=== PATIENT | female | born 1950 | race Two or more races ===

== ENCOUNTER → 2016-07-15 | Outpatient (CLI) | payer MEDICARE ==
--- NOTE | 2016-07-15 09:30 | RAD ---
Bilateral carotid arterial duplex study 07/15/2016 Clinical History: Left carotid bruit. Technique: Using a combination of real-time ultrasound imaging and color-flow and pulse Doppler imaging techniques, duplex evaluation of the carotid and vertebral arterial structures within the neck was performed. Multiple images were obtained. Findings: Very mild atheromatous/atherosclerotic plaque formation is seen involving both carotid bifurcations. The peak systolic velocities are not significantly elevated. No hemodynamically significant stenosis is seen. The vertebral arteries demonstrate normal antegrade flow. Impression: Very mild atheromatous/atherosclerotic plaque formation is seen involving both carotid bifurcations. No hemodynamically significant stenosis is seen. Please note that stenosis calculations for carotid ultrasound studies are derived from validated velocity criteria which are known to correlate with the NASCET methodology.
== END | disposition home or self-care (01) ==
LOC: US 07:20
PROVIDERS: ATTEND Family Medicine
DX: I65.23 Occlusion and stenosis of bilateral carotid arteries (principal)
CPT/HCPCS: 93880

== ENCOUNTER → 2016-07-19 | Outpatient (CLI) | payer MEDICARE ==
--- NOTE | 2016-07-19 09:45 | RAD ---
Indication +PPD. PA and lateral views of the chest were obtained. No prior imaging of the chest is available. There are some changes at the lung apices likely reflecting scarring. There is some interstitial prominence in the lungs likely reflecting chronic changes of fibrosis. There is no consolidated pneumonia. Active inflammation is not seen. Evidence of significant previous granulomatous disease is not seen. Heart and pulmonary vessels are within normal limits. Breast implants are noted. IMPRESSION: Chronic changes. No acute or active process is seen in the chest
== END | disposition home or self-care (01) ==
LOC: RAD 09:10
PROVIDERS: ATTEND Family Medicine
DX: R76.11 Nonspecific reaction to tuberculin skin test without active tuberculosis (principal)
CPT/HCPCS: 71020

== ENCOUNTER → 2016-11-05 | Day surgery (SDC) | payer MEDICARE ==
[~2016-11-05] MED LIST: CHOL400C2 PO; FERR160T4 PO; HYDROmorphone 2 MG/ML VIAL IV PRN; IV RINGERS,LACTATED 1000ML 1,000 ML IV SCH; LIDOCAINE 1% 1 ML SYRINGE. ID PRN; LIDOCAINE 2% PF Vial for OR 5 ML VIAL. ONE; MORPHINE SULFATE 2 MG/ML DISP.SYRIN. IV PRN; MULT-208 PO; ONDANSETRON PF 4 MG/2 ML VIAL. IV PRN; PROCHLORPERAZINE 10 MG/2 ML VIAL. IV PRN; PROPOFOL 20 ML IV ONE; PSYL0.527 PO; SIMV10TA3 PO; fentaNYL PF VIAL 100 MCG/2 ML VIAL IV PRN
[2016-11-05 08:42] VITALS: BP 104/54
--- NOTE | 2016-11-05 08:42 | HP ---
ADMIT DATE: 11/05/2016 REFERRING PHYSICIAN: Dr. Eloina Saucedo HISTORY OF PRESENT ILLNESS: This is a 66-year-old female whose past medical history is significant for hyperlipidemia, seen for a screening colon exam. Bowel habits have been regular with a normal bowel pattern of 1 per day with formed stools. There has been no melena and/or hematochezia. Weight and appetite have been stable. Family history is negative for colon cancer. Last colonoscopy was over a decade ago, which was unrevealing at that time. PAST MEDICAL HISTORY: Hyperlipidemia. ALLERGIES: ASPIRIN. MEDICATIONS: Include vitamin D, ferrous sulfate, multivitamin, simvastatin. SOCIAL HISTORY: She does not drink or smoke. FAMILY HISTORY: Noncontributory. PAST SURGICAL HISTORY: Noncontributory. REVIEW OF SYSTEMS: History of hyperlipidemia. PHYSICAL EXAMINATION: VITAL SIGNS: Temperature is 97.5, pulse 75, respiratory rate 18. HEENT: Normocephalic and atraumatic head. Pupils and extraocular muscles not tested. Sclerae anicteric. NECK: Supple. LUNGS: Clear to auscultation and percussion previously. CARDIOVASCULAR: S1, S2 without S3, S4 or appreciable murmur. ABDOMEN: Normoactive bowel sounds ____ appreciable hepatosplenomegaly. IMPRESSION: Colorectal screening is warranted at this time. Risks and benefits of the procedure including risk of perforation ____ operation have been discussed with the patient who is willing to proceed. ROSA MARIA LIN MD DR: PRAVEENA/ronaldo JOB#: [id number] / [id number]
== END | disposition home or self-care (01) ==
LOC: ENDOS 06:48
PROVIDERS: ATTEND Internal Medicine Gastroenterology
DX: Z12.11 Encounter for screening for malignant neoplasm of colon (principal); K64.0 First degree hemorrhoids; K57.30 Diverticulosis of large intestine without perforation or abscess without bleeding
CPT/HCPCS: G0121; J2001; J2704

== ENCOUNTER → 2017-01-17 | Outpatient (CLI) | payer MEDICARE ==
[2016-11-05 08:42] VITALS: BP 104/54
[~2017-01-17] MED LIST changes: -HYDROmorphone 2 MG/ML VIAL IV PRN; -IV RINGERS,LACTATED 1000ML 1,000 ML IV SCH; -LIDOCAINE 1% 1 ML SYRINGE. ID PRN; -LIDOCAINE 2% PF Vial for OR 5 ML VIAL. ONE; -MORPHINE SULFATE 2 MG/ML DISP.SYRIN. IV PRN; -ONDANSETRON PF 4 MG/2 ML VIAL. IV PRN; -PROCHLORPERAZINE 10 MG/2 ML VIAL. IV PRN; -PROPOFOL 20 ML IV ONE; -fentaNYL PF VIAL 100 MCG/2 ML VIAL IV PRN
--- NOTE | 2017-01-17 10:22 | RAD ---
DATE: January 17, 2017 EXAM: DIGITAL SCREEN BILAT W/CAD HISTORY: Routine screening. COMPARISON: Studies back to December 24, 2013. TECHNIQUE: CC and MLO views along with implant displaced views are provided. This study was interpreted with the benefit of Computerized Aided Detection (CAD). FINDINGS: The breast parenchyma demonstrates scattered fibroglandular densities, category B. There is no worrisome mass or area of architectural distortion. There are no suspicious groupings of microcalcifications implants are noted. IMPRESSION: Stable mammogram with benign findings. BI-RADS CATEGORY: 2 BENIGN FINDING RECOMMENDED FOLLOW-UP: 12M 12 MONTH FOLLOW-UP PQRS compliance statement: Patient information was entered into a reminder system with a target due date for the next mammogram. Mammography is a sensitive method for finding small breast cancers, but it does not detect them all and is not a substitute for careful clinical examination. A negative mammogram does not negate a clinically suspicious finding and should not result in delay in biopsying a clinically suspicious abnormality. "Our facility is accredited by the [employer] Mammography Program."
== END | disposition home or self-care (01) ==
LOC: MAMMO 09:13
PROVIDERS: ATTEND Family Medicine
DX: Z12.31 Encounter for screening mammogram for malignant neoplasm of breast (principal)
CPT/HCPCS: G0202; 77067

== ENCOUNTER 2017-04-25 13:25 | Emergency (ER) | payer MEDICARE ==
[2017-04-25 15:34] LABS: ADD MAN DIFF? NO
[2017-04-25] MEDS: IV NORMAL SALINE 1000ML BAG 1,000 ML IV (15:34)
[2017-04-25 15:35] LABS: BILIRUBIN,URINE NEGATIVE (NEG); CLARITY,URINE CLEAR; COLOR,URINE YELLOW; GLUCOSE,URINE NEGATIVE (NEG); NITRITE,URINE NEGATIVE (NEG); PH,URINE 7.5; PROTEIN,URINE NEGATIVE (NEG-TRACE); UROBILINOGEN,URINE 0.2 mg/dL (0.2 mg/dL)
[2017-04-25] MEDS: ONDANSETRON PF 4 MG/2 ML VIAL. IV (15:35)
[2017-04-25 15:37] LABS: BASO % 1 % (0-3); EOS # 0.1 x10^3/uL (0.0-0.7); EOS % 2 % (0-3); HEMATOCRIT 39.4 % (36.0-47.0); HEMOGLOBIN 13.1 g/dL (12.0-15.5); LYMPH # 1.3 x10^3/uL (1.0-4.8); LYMPH % 25 % (24-48); MEAN CORPUSCULAR HEMOGLOBIN 30 pg (25-35); MEAN CORPUSCULAR HGB CONC 33 g/dL (31-37); MEAN CORPUSCULAR VOLUME 90 fL (79-100); MONO # 0.4 x10^3/uL (0.0-1.1); MONO % 7 % (0-9); NEUT # 3.2 x10^3uL (1.8-7.7); NEUT % 65 % (31-73); PLATELET COUNT 199 x10^3/uL (140-400); RED BLOOD COUNT 4.36 x10^6/uL (3.50-5.40); RED CELL DISTRIBUTION WIDTH 12.9 % (11.5-14.5)
[2017-04-25 15:40] LABS: BACTERIA,URINE 0 /HPF (0-FEW); RBC,URINE OCC /HPF (0-2); SQUAMOUS EPITHELIAL CELL,UR OCC /LPF; WBC,URINE 0 /HPF (0-4)
[2017-04-25 15:46] LABS: ANION GAP 12 (6-14); BLOOD UREA NITROGEN 13 mg/dL (7-20); BUN/CREATININE RATIO 19 (6-20); CALCIUM 8.2 mg/dL (8.5-10.1); CARBON DIOXIDE 27 mmol/L (21-32); CHLORIDE 103 mmol/L (98-107); CREATININE 0.7 mg/dL (0.6-1.0); GFR 83.7; GLUCOSE 97 mg/dL (70-99); POTASSIUM 3.8 mmol/L (3.5-5.1); SODIUM 142 mmol/L (136-145)
[2017-04-25 15:52] LABS: ALBUMIN 3.4 g/dL (3.4-5.0); ALK PHOS 44 U/L (46-116); ALT (SGPT) 19 U/L (14-59); AST (SGOT) 21 U/L (15-37); LIPASE 137 U/L (73-393); TOTAL BILIRUBIN 0.4 mg/dL (0.2-1.0); TOTAL PROTEIN 6.7 g/dL (6.4-8.2)
[2017-04-25] MEDS: LIDO:MAALOX:DONNATAL 1:1:1 15 ML SINGLE DOSE SWSW (16:07)
== END 2017-04-25 17:45 | disposition home or self-care (01) ==
LOC: ER 13:25
DX: R11.2 Nausea with vomiting, unspecified (principal); R10.13 Epigastric pain; R19.7 Diarrhea, unspecified; Z88.6 Allergy status to analgesic agent
CPT/HCPCS: 36415; 80053; 81001; 83690; 85025; 93005; 96361; 96374; 99285-25; J2405; J7030

== ENCOUNTER → 2018-01-27 | Outpatient (CLI) | payer BC ==
[2017-04-25 17:26] VITALS: BP 112/56
[~2018-01-27] MED LIST changes: +FAMO-63 PO; +ONDA4TAB10 SL
--- NOTE | 2018-01-27 13:53 | RAD ---
DATE: 01/27/2018 EXAM: MAMMO GABE SCREENING BILATERAL HISTORY: Routine screening, breast implants COMPARISON: 01/17/2017 This study was interpreted with the benefit of Computerized Aided Detection (CAD). Breast Density: HETERO The breast parenchyma is heterogenously dense, which could reduce sensitivity of mammography. Breast parenchyma level C. FINDINGS: Routine and implant exclusion 2-D views were obtained in CC and MLO projections. 3-D tomosynthesis implant exclusion views were also obtained. The implants appear unchanged. No new or enlarging breast densities are seen. No suspicious microcalcifications are evident. IMPRESSION: There is no mammographic evidence of malignancy either breast. BI-RADS CATEGORY: 2 BENIGN FINDING(S) RECOMMENDED FOLLOW-UP: 12M 12 MONTH FOLLOW-UP PQRS compliance statement: Patient information was entered into a reminder system with a target due date for the next mammogram. Mammography is a sensitive method for finding small breast cancers, but it does not detect them all and is not a substitute for careful clinical examination. A negative mammogram does not negate a clinically suspicious finding and should not result in delay in biopsying a clinically suspicious abnormality. "Our facility is accredited by the [employer] Mammography Program."
== END | disposition home or self-care (01) ==
LOC: MAMMO 08:59
PROVIDERS: ATTEND Family Medicine
DX: Z12.31 Encounter for screening mammogram for malignant neoplasm of breast (principal)
CPT/HCPCS: 77063; 77067

== ENCOUNTER → 2018-07-21 | Outpatient (CLI) | payer BC, MEDICARE ==
[2017-04-25 17:26] VITALS: BP 112/56
--- NOTE | 2018-07-21 10:11 | RAD ---
Thyroid ultrasound, 07/21/2018: HISTORY: Neck lump The right lobe of the gland measures 4.9 x 1.8 x 1.2 cm while the left lobe of the gland measures 4.0 x 1.6 x 1.1 cm. There is a dominant mass at the junction of the isthmus and right lobe measuring 2.7 x 1.8 x 1.2 cm. Much of this process is cystic. There is a 9 mm partially solid mural nodule within this otherwise predominantly cystic mass. The mass is wider than tall. Its margins are smooth. No definite calcification is seen. There is a 1.4 cm solid nodule in the lower pole the right lobe of the gland which lies directly adjacent to this complex cystic nodule. This nodule is wider than tall. There are heterogeneous internal echoes with several punctate echogenic foci. There is a 1.0 cm cyst in the upper pole the right lobe of the gland there is a suggestion of a tiny mural calcification. No solid component is seen. Several small subcentimeter hypoechoic nodules are noted in the left lobe of the gland. The largest of these measures 5 mm. There are mildly heterogeneous internal echoes. Its margins are smooth. IMPRESSION: 1. Multinodular thyroid gland as described above. 2. While the sonographic characteristics of these nodules are nonspecific, the complex cyst with a mural nodule at the junction of the right lobe and isthmus and the adjacent heterogeneous solid nodule in the lower pole the right lobe of the gland are considered to be mildly suspicious. Ultrasound-guided biopsy of these nodules is suggested. Electronically signed by: Jong Lang MD (07/21/2018 10:08 AM) [facility]
== END | disposition home or self-care (01) ==
LOC: US 08:53
PROVIDERS: ATTEND Family Medicine
DX: E04.2 Nontoxic multinodular goiter (principal)
CPT/HCPCS: 76536

== ENCOUNTER → 2018-08-24 | Outpatient (CLI) | payer BC, MEDICARE ==
[2017-04-25 17:26] VITALS: BP 112/56
--- NOTE | 2018-08-24 11:27 | RAD ---
Ultrasound guided thyroid biopsy #1, 08/24/2018: History: Thyroid nodules Previous imaging demonstrated a cystic mass with a complex mural nodule in the isthmus as well as an adjacent mildly suspicious solid nodule in the medial aspect of the right thyroid lobe. We first targeted the complex isthmic nodule. Under local anesthesia, aseptic conditions and sonographic guidance a 25-gauge needle was passed into this nodule via a left anterolateral approach. Three 25-gauge aspirates were obtained from the predominantly solid component. A 22-gauge needle was passed into the more cystic component of the complex mural nodule. These aspirates were sent to pathology for evaluation. Ultrasound-guided thyroid biopsy #2, 08/24/2018: We then targeted the adjacent solid nodule in the medial aspect of the right thyroid lobe. Four 25-gauge aspirates were obtained from this nodule utilizing a similar approach. The materials were sent to pathology for evaluation. Hemostasis was obtained. The patient tolerated the procedures well and left the department in good condition. The pathology results are pending.
--- NOTE | 2018-08-30 12:06 | PATHOLOGY ---
Note [facility] Accession Number: [id number] TESTS RESULT FLAG UNITS REF RANGE LAB Clinician Provided Cytology Information No. of containers..01 Other (Miscellaneous) Source: RT ISTHMUS DIAGNOSIS: RT ISTHMUS NEGATIVE FOR MALIGNANT CELLS. BETHESDA CATEGORY II. SPECIMEN CONSISTS OF BENIGN FOLLICULAR CELLS, HEMOSIDERIN-LADEN MACROPHAGES, COLLOID, AND BLOOD. THIS PATTERN IS CONSISTENT WITH AN ADENOMATOUS NODULE. THIS INTERPRETATION INCLUDES EVALUATION OF A CELL BLOCK. Pathologist ICD10: 02 E04.1 Signed out by: Kyle Brown MD, Pathologist NPI- [id number] Performed by: Mague Baker, Entry Level Account Manager ([facility]) Gross description: 01 30ML, PINK, CLEAR /LCS FLAG LEGEND: L-Low Normal,H-High Normal,LL-Alert Low,HH-Alert High <-Panic Low,>-Panic High,A-Abnormal,AA-Critical Abnormal Performed at: [facility] [place] [address] [place] [address] Pantera Potts MD, 02 [facility] [place] [address] [place] [address] Kyle Brown MD, Specimen Comment: A courtesy copy of this report has been sent to Specimen Comment: [phone], . Specimen Comment: Report sent to / DR CONNORS Performed at: 01 [facility] [address], [place], [place] [id number] MD Pantera Potts MD Phone: [phone]
--- NOTE | 2018-08-30 12:06 | PATHOLOGY ---
Note [facility] Accession Number: [id number] TESTS RESULT FLAG UNITS REF RANGE LAB Clinician Provided Cytology Information No. of containers..01 Other (Miscellaneous) Source: RT MID THYROID DIAGNOSIS: RT MID THYROID NEGATIVE FOR MALIGNANT CELLS. BETHESDA CATEGORY II. SPECIMEN CONSISTS OF BENIGN FOLLICULAR CELLS, MACROPHAGES, COLLOID, AND BLOOD. THIS PATTERN IS CONSISTENT WITH AN ADENOMATOUS NODULE. THIS INTERPRETATION INCLUDES EVALUATION OF A CELL BLOCK. Pathologist ICD10: 02 E04.1 Signed out by: Kyle Brown MD, Pathologist NPI- [id number] Performed by: Mague Baker, Automatic Presser ([facility]) Gross description: 01 30ML, RED, CLOUDY /LCS FLAG LEGEND: L-Low Normal,H-High Normal,LL-Alert Low,HH-Alert High <-Panic Low,>-Panic High,A-Abnormal,AA-Critical Abnormal Performed at: 01 [facility] [address] [place] [address] Pantera Potts MD, 02 [facility] [place] [address] [place] [address] Kyle Brown MD, Specimen Comment: A courtesy copy of this report has been sent to Specimen Comment: [phone], . Specimen Comment: Report sent to Dr. Lang / DR CONNORS Performed at: 01 [facility] [place] [address], [place], [place] [id number] MD Pantera Potts MD Phone: [phone]
== END | disposition home or self-care (01) ==
LOC: US 09:04
PROVIDERS: ATTEND Family Medicine
DX: E04.1 Nontoxic single thyroid nodule (principal)
CPT/HCPCS: 10005; 10006; 60300; 76942; 88173; 88305

== ENCOUNTER → 2019-02-01 | Outpatient (CLI) | payer BC ==
[2017-04-25 17:26] VITALS: BP 112/56
--- NOTE | 2019-02-02 10:23 | RAD ---
DATE: 02/01/2019 10:48 AM EXAM: MAMMO GABE SCREENING BILATERAL HISTORY: Screening COMPARISON: January 27, 2018. January 17, 2017 Bilateral CC and MLO views of the breasts were performed including implant displaced views. Bilateral breast tomosynthesis was performed in CC and MLO projections. This study was interpreted with the benefit of Computerized Aided Detection (CAD). FINDINGS: Breast Density: HETERO The breast parenchyma Is heterogeneously dense, which could reduce sensitivity of mammography. Breast parenchyma level C Bilateral breast implants. No suspicious masses, microcalcifications or architectural distortion is present to suggest malignancy in either breast. The visualized axillae are unremarkable. IMPRESSION: No mammographic evidence of malignancy. BI-RADS CATEGORY: 2 BENIGN FINDING(S) RECOMMENDED FOLLOW-UP: 12M 12 MONTH FOLLOW-UP Annual screening mammography is recommended, unless clinically indicated sooner based on symptoms or change in physical exam. PQRS compliance statement: Patient information was entered into a reminder system with a target due date one year for the next mammogram. Mammography is a sensitive method for finding small breast cancers, but it does not detect them all and is not a substitute for careful clinical examination. A negative mammogram does not negate a clinically suspicious finding and should not result in delay in biopsying a clinically suspicious abnormality. "Our facility is accredited by the [employer] Mammography Program."
== END | disposition home or self-care (01) ==
LOC: MAMMO 10:42
PROVIDERS: ATTEND Family Medicine
DX: Z12.31 Encounter for screening mammogram for malignant neoplasm of breast (principal)
CPT/HCPCS: 77063; 77067

== ENCOUNTER → 2019-09-21 | Outpatient (CLI) | payer BC, MEDICARE ==
[2017-04-25 17:26] VITALS: BP 112/56
[~2019-09-21] MED LIST changes: +SIMV10TA15 PO; -SIMV10TA3 PO
--- NOTE | 2019-09-21 11:04 | RAD ---
EXAM: Thyroid Ultrasound INDICATION: Reason: Cyst of thyroid; HX of Right Thyroid BX x 2- Benign ? TECHNIQUE: Real-time ultrasound of the thyroid was performed with permanent freeze-frame documentation. COMPARISON: Thyroid ultrasound of 08/24/2018 ? FINDINGS: THYROID: Thyroid gland is normal and homogeneous echogenicity. ? Right Lobe: 4.4 x 1.5 x 1.4 cm. ? Left Lobe: 4.4 x 1.6 x 1.1 cm. ? Isthmus: 0.4 cm. ?? In the right thyroid lobe, superomedial colloid cyst measuring 1.0 x 1.1 x 0.6 cm is present. At the inferior right thyroid lobe, a solid circumscribed, isoechoic 1.4 x 0.9 x 1.0 cm wider than tall nodule is present with echogenic reflectors compatible with punctate calcifications. There is some peripheral vascularity. Total points 6. Nodule is moderately suspicious (TI-RADS 4). In the midpole left thyroid lobe, mixed solid and cystic nodule measuring 0.6 x 0.4 x 0.4 cm is present. This is not suspicious (TI-RADS 2). ? OTHER: No evidence of adjacent cervical adenopathy. ? IMPRESSION: ? Suspicious dominant nodule in the inferior lobe right thyroid gland. It is at or close to the threshold for biopsy. Therefore, if biopsy is not pursued currently, then at minimum, follow-up in one year is recommended. Electronically signed by: Nolvia Sykes MD (09/21/2019 11:01 AM) [id number]
== END ==
LOC: US 09:04
PROVIDERS: ATTEND Family Medicine
DX: E04.1 Nontoxic single thyroid nodule (principal)
CPT/HCPCS: 76536

== ENCOUNTER → 2020-02-14 | Outpatient (CLI) | payer BC ==
[2017-04-25 17:26] VITALS: BP 112/56
--- NOTE | 2020-02-15 12:10 | RAD ---
DATE: 02/14/2020 8:10 AM EXAM: MAMMO GABE SCREENING BILATERAL HISTORY: Screening COMPARISON: 02/01/2019 Bilateral CC and MLO views of the breasts were performed, along with implant displaced CC and MLO views.. Bilateral breast tomosynthesis was performed in implant displaced CC and MLO projections. This study was interpreted with the benefit of Computerized Aided Detection (CAD). FINDINGS: Breast Density: FATTY The Breast Parenchyma is primarily fatty replaced. Breast parenchyma level density A. Bilateral subpectoral silicone implants are redemonstrated. No suspicious masses, microcalcifications or architectural distortion is present to suggest malignancy in either breast. The visualized axillae are unremarkable. IMPRESSION: No mammographic evidence of malignancy. BI-RADS CATEGORY: 1 NEGATIVE RECOMMENDED FOLLOW-UP: 12M 12 MONTH FOLLOW-UP Annual screening mammography is recommended, unless clinically indicated sooner based on symptoms or change in physical exam. PQRS compliance statement: Patient information was entered into a reminder system with a target due date for the next mammogram. Mammography is a sensitive method for finding small breast cancers, but it does not detect them all and is not a substitute for careful clinical examination. A negative mammogram does not negate a clinically suspicious finding and should not result in delay in biopsying a clinically suspicious abnormality. "Our facility is accredited by the [employer] Mammography Program."
== END ==
LOC: MAMMO 08:09
PROVIDERS: ATTEND Family Medicine
DX: Z12.31 Encounter for screening mammogram for malignant neoplasm of breast (principal)
CPT/HCPCS: 77063; 77067

== ENCOUNTER → 2020-03-21 | Outpatient (CLI) | payer BC, MEDICARE ==
[2017-04-25 17:26] VITALS: BP 112/56
--- NOTE | 2020-03-21 09:51 | RAD ---
Thyroid ultrasound compared to similar examination dated September 21, 2019 for thyroid nodules. TECHNIQUE AND FINDINGS: Real-time grayscale and color Doppler evaluation of the thyroid gland is perf ormed. The right lobe measures 4.7 x 1.5 x 1.2 cm and the left measures 3.7 x 1.4 x 0.9 cm. Isthmus m easures 3 mm in thickness. There is normal blood flow to the thyroid gland. Background echotexture is mildly inhomogeneous. There are several thyroid nodules redemonstrated. On the right, there is a dom inant benign-appearing cyst in the mid lobe. At the inferior aspect the right lobe the thyroid gland, there is a heterogeneous but predominantly hyperechoic solid wider than tall smoothly marginated nod ule with a few internal echogenic foci, corresponding to a TR 4 lesion. This is not changed in appear ance or size from the prior study, and measures 1.3 x 1.1 x 1.3 cm today. A few other 3 to 4 mm solid nodules are seen throughout the thyroid gland, all stable. No new nodules. No suspicious adenopathy. IMPRESSION: 1. Stable multinodular thyroid as described. Dominant TR 4 nodule in the inferior right thyroid measu res 1.3 cm. ACR TI-RADS 2017 Composition - cystic or completely cystic: Benign, no further score - spongiform: Benign, no further score - mixed cystic and Solid: 1 point - solid or almost completely solid: 2 points Echogenicity - anechoic: 0 points - hyper- or isoechoic: 1 point - hypoechoic: 2 points - very hypoechoic: 3 points Shape (assess on transverse plane) - wider than tall: 0 points - taller than wide: 3 points Margin - smooth: 0 points - ill-defined: 0 points - lobulated/irregular: 2 points - extra-thyroidal extension: 3 points Echogenic Foci - none: 0 points - large comet tail artifact: 1 point - peripheral/rim calcifications: 2 points - punctate echogenic foci: 3 points TR1 - 0-1 points; Benign TR2 - 2 points; Not Suspicious TR3 - 3 points; Mildly Suspicious; Follow-up at 1,3,5 years for >= 1.5cm and FNA for >=2.5cm TR4 - 4-6 points; Moderately Suspicious; Follow-up at 1,2,3,5 years for >= 1.0cm and FNA for >= 1.5cm TR5 - 7+ points; Highly Suspicous; Follow=up at 1,2,3,4,5 years for >= 0.5cm and FNA for >= 1.0cm Notes: Only score and report the Four highest scoring nodules. Significant interval enlargement on fo llow-uup is defined as >20% and > 2mm in two dimensions or > 50% increase in volume. If there are mul tiple nodules, the two with the highest ACR TI-RADS score should be sampled, rather than the two larg est. Electronically signed by: James Mittal MD (03/21/2020 9:49 AM) [id number]
== END ==
LOC: US 09:17
PROVIDERS: ATTEND Family Medicine
DX: E04.2 Nontoxic multinodular goiter (principal)
CPT/HCPCS: 76536

== ENCOUNTER → 2021-02-19 | Outpatient (CLI) | payer OTHER, MEDICARE ==
[2017-04-25 17:26] VITALS: BP 112/56
--- NOTE | 2021-02-19 17:01 | RAD ---
Bilateral digital screening 2-D and 3-D (tomosynthesis) mammogram: Reason for examination: Routine screening. Comparison is made to previous mammograms from 02/14/2020 and 02/01/2019. Bilateral mammograms in CC and oblique projections were obtained with 2-D imaging and 3-D tomosynthes is imaging and reviewed on the workstation. Interpretation was made with the benefit of CAD. Findings: Breast density: Category C. The breasts are heterogeneously dense, which may obscure small masses. There are no suspicious masses, malignant appearing calcifications or architectural distortion. The r etropectoral silicone breast implants show normal contour. Impression: No evidence of malignancy. ASSESSMENT: BI-RADS 1. Recommendations: Routine screening mammograms. This patient's information has been entered into a reminder system for the patient to be notified wit h the results of her examination and a target date for the next mammogram. Your patient's mammogram demonstrates that she has dense breast tissue (breast density category C or D), which could hide abnormalities, and if she has other risk factors for breast cancer that have bee n identified, she might benefit from supplemental screening tests that may be suggested by you as her ordering physician. Dense breast tissue, in and of itself, is a relatively common condition. Therefo re, this information is not provided to cause undue concern, but rather to raise your awareness and t o promote discussion with your patient regarding the presence of other risk factors, in addition to d ense breast tissue. Electronically signed by: Paulina Rodriguez MD (02/19/2021 4:59 PM) [id number]
== END ==
LOC: MAMMO 12:29
PROVIDERS: ATTEND Family Medicine
DX: Z12.31 Encounter for screening mammogram for malignant neoplasm of breast (principal)
CPT/HCPCS: 77063; 77067

== ENCOUNTER → 2021-03-30 | Outpatient (CLI) | payer MEDICARE, OTHER ==
[2017-04-25 17:26] VITALS: BP 112/56
--- NOTE | 2021-03-31 08:56 | RAD ---
EXAM: THYROID ULTRASOUND. HISTORY: Thyroid nodule. Prior benign biopsy at the right lower pole. COMPARISON: 03/21/2020. FINDINGS: Sonographic evaluation of the thyroid gland was performed and evaluated using ACR TI-RADS c riteria. Right lobe: The right lobe measures 4.5 x 1.7 x 1.2 cm. A purely cystic nodule at the right upper joseline e measures 13 x 11 x 7 mm. This is slightly increased but benign. A hyperechoic solid nodule at the r ight lower pole measures 14 x 12 x 12 mm, was previously biopsied with benign results, and is unchang ed. Left lobe: The left lobe measures 4.0 x 1.5 x 0.9 cm. A solid greater than cystic isoechoic nodule in the left interpolar region measures 6 x 6 x 3 mm and is not clearly changed given similar measuremen ts. Isthmus: The isthmus measures 3 mm. A 7 x 5 x 3 mm solid hypoechoic nodule along the right aspect of the isthmus is stable. IMPRESSION/RECOMMENDATION: 1. Stable 1.4 cm nodule at the right lower pole, benign on prior biopsy. Electronically signed by: Floresita Perdomo MD (03/31/2021 8:54 AM) [id number]
== END ==
LOC: US 15:51
PROVIDERS: ATTEND Family Medicine
DX: E04.1 Nontoxic single thyroid nodule (principal)
CPT/HCPCS: 76536